=== PATIENT | male | born 1965 | race Caucasian/White ===

== ENCOUNTER 2016-11-14 12:47 | Emergency (ER) | payer MEDICAID, OTHER ==
[2016-11-15 12:44] VITALS: BMI 31.5
== END 2016-11-14 16:30 | disposition home or self-care (01) ==
LOC: H.EDDOWN 12:47
DX: M79.1 Myalgia (principal); W01.0XXA Fall on same level from slipping, tripping and stumbling without subsequent striking against object, initial encounter; Y93.9 Activity, unspecified

== ENCOUNTER 2017-01-16 13:12 | Emergency (ER) | payer OTHER ==
[2017-01-16 13:14] VITALS: BMI 31.5
[2017-01-16 13:30] VITALS: BP 119/66; PULSE 79; RESP 16; TEMP 98.2; O2SAT 100
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
--- NOTE | 2017-01-16 14:30 | RAD ---
PROCEDURE: Left Foot Radiographs. HISTORY: trauma COMPARISON: None. FINDINGS: BONES: There is a displaced oblique intra-articular fracture at the base of the 1st metatarsal. There is no other fracture identified. JOINTS: Osteoarthritis of MTP 1. Remaining joint spaces and articular surfaces are preserved for SOFT TISSUES: Unremarkable OTHER FINDINGS: None. IMPRESSION: Oblique intra-articular fracture, displaced, base of 1st metatarsal.
[2017-01-16] MEDS ORDERED: Silver Sulfadiazine 1% CREAM (50 gm) ONE (15:56)
--- NOTE | 2017-01-16 16:23 | US ---
HISTORY: pain, swelling left leg . PRIORS: None. FINDINGS: 2-D, color and duplex Doppler analysis of the lower extremity venous circulation using routine protocol from the femoral veins through the popliteal veins. Venous compressibility: Normal. Flow and augmentation patterns: Normal. Visualized veins upper third of calf: Normal. Banks cyst: None. IMPRESSION: No sonographic or Doppler evidence for DVT in left lower extremity.
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
[2017-01-16] MEDS ORDERED: Oxycodone/Acetaminophen 5/325 mg Tab PO STA (17:14)
[2017-01-16] MEDS ORDERED: Oxycodone/Acetaminophen 5/325 mg Tab ONE (17:33)
== END 2017-01-16 17:48 | disposition home or self-care (01) ==
LOC: H.ER 13:12
DX: S92.302A Fracture of unspecified metatarsal bone(s), left foot, initial encounter for closed fracture (principal); V29.9XXA Motorcycle rider (driver) (passenger) injured in unspecified traffic accident, initial encounter; Y92.410 Unspecified street and highway as the place of occurrence of the external cause